=== PATIENT | female | born 1945 | race Caucasian/White ===

== ENCOUNTER 2017-08-02 15:32 | Emergency (ER) | payer MEDICARE ==
[2017-08-02 16:07] VITALS: BP 113/71; PULSE 77; RESP 16; TEMP 97.5; O2SAT 98
--- NOTE | 2017-08-02 16:36 | ED PDOC ---
HPI: Trauma/Fall - HPI Time Seen by Provider: 08/02/17 15:46 Chief Complaint (Nursing): Trauma Chief Complaint (Provider): Right Hand Pain, left Hand Pain and Head Injury History Per: Patient History/Exam Limitations: no limitations Location Of Injury: Right: Hand, Left: Hip Additional Complaint(s): 72 year old female presents to the emergency department for the evaluation of right hand pin, left hip pin and head injury. Patient reports that her symptoms began after she tripped and fell yesterday. Denies dizziness at time of fall. She reports that she was seen earlier by [facility] urgent care and advised to present to the hospital. Patient states that she took no medication prior to arrival. Denies vomiting, nausea, loss of consciousness, use of anticoagulants, abdominal pain, chest pain. Patient also notes some dizziness which she describes as her head spinning. She states that the dizziness gets worse when she changes position and also when she tilts her head forward. Patient also has pain in the right hand in her right fifth finger (right hand dominant). PMD: Out of state Past Medical History Reviewed: Historical Data, Nursing Documentation, Vital Signs Vital Signs: Last Vital Signs Temp 97.5 F L 08/02/17 15:35 Pulse 77 08/02/17 15:35 Resp 16 08/02/17 15:35 BP 113/71 08/02/17 15:35 Pulse Ox 98 08/02/17 17:16 - Medical History PMH: Anxiety, Depression, HTN, Hyperlipidemia, Hypothyroidism, Osteoporosis - Surgical History Other surgeries: Masectomy; Hysterectomy - Family History Family History: States: Unknown Family Hx - Social History Ex-Smoker (has not smoked in the last 12 months): Yes Alcohol: None Drugs: Denies - Home Medications Home Medications: Ambulatory Orders Medication Instructions Recorded Acetaminophen [Acetaminophen 8 650 mg PO Q8 PRN #24 tablet.er 08/02/17 Hour] Meclizine [Meclizine*] 25 mg PO Q6 PRN #12 tab 08/02/17 - Allergies Allergies/Adverse Reactions: Allergies Allergy/AdvReac Type Severity Reaction Status Date / Time latex Allergy RASH Verified 08/02/17 15:35 Review of Systems ROS Statement: Except As Marked, All Systems Reviewed And Found Negative Gastrointestinal: Negative for: Vomiting, Abdominal Pain, Diarrhea Musculoskeletal: Positive for: Hand Pain (right), Other (left hip pain) Neurological: Positive for: Dizziness. Negative for: Headache Physical Exam - Reviewed Nursing Documentation Reviewed: Yes Vital Signs Reviewed: Yes - Physical Exam Appears: Positive for: Non-toxic, No Acute Distress (AAO x3; good historian; well-nourished ) Head Exam: Positive for: NORMAL INSPECTION, NORMOCEPHALIC. Negative for: ATRAUMATIC (mild tenderness to left parietal scalp no swelling; no hematoma; tenderness to left moravian; no ecchymosis or palpable gigi deformity.) Skin: Positive for: Normal Color, Warm, Dry. Negative for: Rash Eye Exam: Positive for: Normal appearance, EOMI, PERRL. Negative for: Nystagmus ENT: Positive for: Normal ENT Inspection. Negative for: Nasal Congestion, Pharyngeal Erythema, Tonsillar Swelling Neck: Positive for: Normal, Painless ROM, Supple Cardiovascular/Chest: Positive for: Regular Rate, Rhythm, Chest Non Tender. Negative for: Murmur, Tachycardia Respiratory: Positive for: Normal Breath Sounds. Negative for: Rales, Rhonchi, Wheezing, Respiratory Distress Gastrointestinal/Abdominal: Positive for: Normal Exam, Bowel Sounds, Soft, Other (Tenderness to left lateral aspect of left lateral ribs no subcutaneous emphysema.). Negative for: Tenderness, Mass, Guarding, Rebound Back: Positive for: Normal Inspection. Negative for: L CVA Tenderness, R CVA Tenderness Extremity: Positive for: Tenderness, Other (mild ecchymosis to dorsum of right forth digit and pain with flexion but rom intact). Negative for: Normal ROM, Deformity, Swelling Neurologic/Psych: Positive for: Alert, Oriented, Gait (Gait steady in ED ) - ECG O2 Sat by Pulse Oximetry: 98 (RA) Pulse Ox Interpretation: Normal Medical Decision Making Medical Decision Makin Initial Impression 72 year old female presenting with right had injury; close head injury and rib contusion status post fall Initial plan: * CT Head w/o Contrast * RAD Ribs and Chest * Antivert 25mg PO * Tylenol 650 mg PO * RAD Rt hand * Reevaluation 1633 PROCEDURE: Right Hand Radiographs. Save HISTORY: s/p fall COMPARISON: None. FINDINGS: BONES: On the lateral view a small volar sided 4th proximal phalangeal nondisplaced fracture is suggested. Is also apparent dorsal cortical nondisplaced fracture apparent 4th distal phalanx -little if any soft tissue swelling here is perceived. JOINTS: Mild distal interphalangeal osteoarthritic changes. SOFT TISSUES: Normal. OTHER FINDINGS: None. IMPRESSION: Small incomplete nondisplaced 4th digit fractures as referenced above. The more proximal fracture volar aspect is associated with soft tissue swelling - compatible with acute pathology here. The more distal dorsal fracture has no appreciable soft tissue swelling associated with it. Clinical correlation with the physical exam here and past medical history here is suggested 163 PROCEDURE: Radiographs of the Chest and Left Ribs. HISTORY: s/p fall COMPARISON: None available. TECHNIQUE: Frontal radiograph of the chest and multiple oblique radiographs of the left ribs were obtained. FINDINGS: LEFT RIBS: No fracture or focal lesion visualized. LUNGS: A vague nodular opacity on the frontal chest x-ray mid to lower lung zone with some a amorphous lower density opacity here present is noted and on clear significance. No comparison studies are available. Surgical changes over the lateral right tha thorax are noted to further evaluate these left-sided findings consider CT noncontrast chest exam. Inflammatory/infectious as well as neoplastic etiologies here are considerations. Left lateral pleural parenchymal pathology here is a consideration findings are in the area denoting patient's area of concern. PLEURA: No pneumothorax or pleural fluid. CARDIOVASCULAR: Normal sized heart. No pulmonary vascular congestion. OTHER FINDINGS: None. IMPRESSION: No rib fracture seen this patient and generalized osteopenia. . No pneumothorax appreciated. On the associated left frontal chest x-ray in the mid to lateral left lung zone vague nodular opacity is perceived low-density surrounding a amorphous opacity. Pulmonary nodular pathology here with the contiguous left pleural parenchymal pathology here is the diagnosis of exclusion. Comparison studies are available. Postop changes in the right tha thorax are noted. Consider noncontrast CT chest imaging to further evaluate [address] FINDINGS: HEMORRHAGE: No intracranial hemorrhage. BRAIN: No mass effect or edema. Bifrontal and bitemporal cerebral atrophy. A 11 mm well-circumscribed CSF like focus in the left basal ganglion region noted. Appearances compatible with a benign incidentally detected giant perivascular space/ Virchow Duncan space if patient has prior outside studies ease to be helpful in ensuring stability at this appearance if not consider elective follow -up MRI a few tinier left basal ganglionic lacunes are also suggested VENTRICLES: Unremarkable. No hydrocephalus. CALVARIUM: Unremarkable. PARANASAL SINUSES: Unremarkable as visualized. No significant inflammatory changes. MASTOID AIR CELLS: Unremarkable as visualized. No inflammatory changes. OTHER FINDINGS: None. IMPRESSION: No intracranial hemorrhage or mass effect. No calvarial fracture. No extra- axial hemorrhage appreciated 11 mm well-circumscribed CSF like focus in the left basal ganglion region noted. Appearances compatible with a giant perivascular space/ Virchow Duncan space if patient has prior outside studies ease to be helpful in ensuring stability at this appearance if not consider elective follow-up MRI a few tinier left basal ganglionic lacunes are also suggested. 1703 Aluminum finger splint is placed to right 4th digit. Neurological intact after placement. Patient will be provided with a disc of CT images and is advised to follow up with her PCP next week for further imaging and orthopedic service once she returns to [place] if unable to see the referred provider. 1720 On re-evaluation, patient reports improvement of symptoms, denies any dizziness , headache, nausea/vomiting, chest pain, abdominal pain, palpitations. On exam, patient remains AAOx3, in no acute distress. On exam, neck is supple, lungs CTA , cardiac RRR, abdomen is soft and non-tender, neuro exam shows no focal findings. VSS, stable for discharge. Diagnostic results d/w the patient in great detail. Dx of finger fracture, rib contusion, closed head injury s/p fall d/w the patient. Based on history, exam and diagnostic results plan will be for discharge and outpatient follow up. Advised to follow up with primary care physician / ortho in 1-2 days without fail. Advised to take medication as prescribed. Return to the emergency room at any time for any new or worsening symptoms. Patient states she fully agrees with and understands discharge instructions. States that she agrees with the plan and disposition. Verbalized and repeated discharge instructions and plan. I have given the patient opportunity to ask any additional questions. Patient ambulated from ED exam room without incident. Documented by Ngozi Hernandez acting as a scribe for Josselni Monique PA-C. All medical record entries made by the Scribe were at my direction and personally dictated by me. I have reviewed the chart and agree that the record accurately reflects my personal performance of the history, physical exam, medical decision making, and the department course for this patient. I have also personally directed, reviewed, and agree with the discharge instructions and disposition. Disposition - Clinical Impression Clinical Impression: Finger fracture, right, Dizziness, Closed head injury, Contusion of rib on left side, Fall - Patient ED Disposition Is Patient to be Admitted: No Counseled Patient/Family Regarding: Studies Performed, Diagnosis, Need For Followup, Rx Given - Disposition Referrals: Andrew Trivedi MD [Staff Provider] - Disposition: Routine/Home Disposition Time: 17:23 Condition: STABLE Additional Instructions: FOLLOW UP WITH PMD/ORTHO SOON POSSIBLE FOR FURTHER EVALUATION AND ADDITIONAL IMAGING. RETURN TO ED WITH ANY NEW OR WORSENING SYMPTOMS. Prescriptions: Acetaminophen [Acetaminophen 8 Hour] 650 mg PO Q8 PRN #24 tablet.er PRN Reason: Pain, Moderate (4-7) Meclizine [Meclizine*] 25 mg PO Q6 PRN #12 tab PRN Reason: Dizziness Instructions: Contusion (DC), Closed Head Injury, Postconcussion Syndrome (DC) , Bruised Rib, Finger Fracture, Dizziness, Nonvertigo, (DC) Forms: [employer] (Georgian) Print Language: ARMENIAN - POA Present On Arrival: Falls Or Trauma
--- NOTE | 2017-08-02 16:40 | RAD ---
PROCEDURE: Radiographs of the Chest and Left Ribs. HISTORY: s/p fall COMPARISON: None available. TECHNIQUE: Frontal radiograph of the chest and multiple oblique radiographs of the left ribs were obtained. FINDINGS: LEFT RIBS: No fracture or focal lesion visualized. LUNGS: A vague nodular opacity on the frontal chest x-ray mid to lower lung zone with some a amorphous lower density opacity here present is noted and on clear significance. No comparison studies are available. Surgical changes over the lateral right tha thorax are noted to further evaluate these left-sided findings consider CT noncontrast chest exam. Inflammatory/infectious as well as neoplastic etiologies here are considerations. Left lateral pleural parenchymal pathology here is a consideration findings are in the area denoting patient's area of concern. PLEURA: No pneumothorax or pleural fluid. CARDIOVASCULAR: Normal sized heart. No pulmonary vascular congestion. OTHER FINDINGS: None. IMPRESSION: No rib fracture seen this patient and generalized osteopenia. . No pneumothorax appreciated. On the associated left frontal chest x-ray in the mid to lateral left lung zone vague nodular opacity is perceived low-density surrounding a amorphous opacity. Pulmonary nodular pathology here with the contiguous left pleural parenchymal pathology here is the diagnosis of exclusion. Comparison studies are available. Postop changes in the right tha thorax are noted. Consider noncontrast CT chest imaging to further evaluate
--- NOTE | 2017-08-02 16:47 | CT ---
PROCEDURE: CT HEAD WITHOUT CONTRAST. HISTORY: s/p fall COMPARISON: None available. TECHNIQUE: Axial computed tomography images were obtained through the head/brain without intravenous contrast. Radiation dose: Total exam DLP = 707 mGy-cm. This CT exam was performed using one or more of the following dose reduction techniques: Automated exposure control, adjustment of the mA and/or kV according to patient size, and/or use of iterative reconstruction technique. FINDINGS: HEMORRHAGE: No intracranial hemorrhage. BRAIN: No mass effect or edema. Bifrontal and bitemporal cerebral atrophy. A 11 mm well-circumscribed CSF like focus in the left basal ganglion region noted. Appearances compatible with a benign incidentally detected giant perivascular space/ Virchow Duncan space if patient has prior outside studies ease to be helpful in ensuring stability at this appearance if not consider elective follow-up MRI a few tinier left basal ganglionic lacunes are also suggested VENTRICLES: Unremarkable. No hydrocephalus. CALVARIUM: Unremarkable. PARANASAL SINUSES: Unremarkable as visualized. No significant inflammatory changes. MASTOID AIR CELLS: Unremarkable as visualized. No inflammatory changes. OTHER FINDINGS: None. IMPRESSION: No intracranial hemorrhage or mass effect. No calvarial fracture. No extra-axial hemorrhage appreciated 11 mm well-circumscribed CSF like focus in the left basal ganglion region noted. Appearances compatible with a giant perivascular space/ Virchow Duncan space if patient has prior outside studies ease to be helpful in ensuring stability at this appearance if not consider elective follow-up MRI a few tinier left basal ganglionic lacunes are also suggested .
== END 2017-08-02 17:36 | disposition home or self-care (01) ==
LOC: H.ER 15:32
DX: R42 Dizziness and giddiness (principal); S09.90XA Unspecified injury of head, initial encounter; S20.212A Contusion of left front wall of thorax, initial encounter; E03.9 Hypothyroidism, unspecified; E78.5 Hyperlipidemia, unspecified; Z86.59 Personal history of other mental and behavioral disorders; I10 Essential (primary) hypertension; M81.0 Age-related osteoporosis without current pathological fracture; S62.644A Nondisplaced fracture of proximal phalanx of right ring finger, initial encounter for closed fracture; W19.XXXA Unspecified fall, initial encounter; Z87.891 Personal history of nicotine dependence